=== PATIENT | male | born 1955 | race Caucasian/White ===

== ENCOUNTER 2018-04-22 12:20 | Emergency (ER) | payer BC ==
[2018-04-22 12:36] VITALS: BP 147/93; PULSE 67; TEMP 98.6; BMI 22.0
--- NOTE | 2018-04-22 12:41 | PDOC ---
History of Present Illness - General Chief Complaint: Injury Stated Complaint: LEFT MID FINGER LACERATION/AVULSION Time Seen by Provider: 04/22/18 12:37 History Source: Patient (Patient walked in complaining of accidental injury to hid left hand middle fringer with a trader blade he tried to work on) Exam Limitations: No Limitations - History of Present Illness Timing/Duration: momentarily Severity: moderate Associated Symptoms: reports: denies symptoms Past History - Travel Traveled outside of the country in the last 30 days: No Close contact w/someone who was outside of country & ill: No - Past Medical History Allergies/Adverse Reactions: Allergies Allergy/AdvReac Type Severity Reaction Status Date / Time No Known Allergies Allergy Verified 04/22/18 12:22 Home Medications: Ambulatory Orders Cephalexin [Keflex] 500 mg PO TID #20 capsule 04/22/18 Oxycodone HCl/Acetaminophen [Percocet 5-325 mg Tablet] 1 - 2 tab PO Q6H #20 tab MDD 6 tabs 04/22/18 Quetiapine Fumarate [Seroquel -] 25 mg PO HS 04/22/18 Sulfamethoxazole/Trimethoprim [Bactrim Ds -] 1 tab PO BID #14 tablet 04/22/18 Vilazodone Hydrochloride [Viibryd] 10 mg PO DAILY 04/22/18 Asthma: Yes COPD: No Psychiatric Problems: Yes (DEPRESSION) - Surgical History Appendectomy: Yes - Immunization History Tetanus Status: Less than 5 years Td Vaccination: Yes Immunization Up to Date: Yes - Suicide/Smoking/Psychosocial Hx Have you felt down, depressed or hopeless?: No Have you had or do you have any thoughts to hurt yourself?: No Have you had or do you have any thoughts to hurt others?: No Smoking Status: No Smoking History: Never smoked Have you smoked in the past 12 months: No Number of Cigarettes Smoked Daily: 0 Hx Alcohol Use: Yes (RARE) Drug/Substance Use Hx: No Substance Use Type: None Review of Systems - Review of Systems Able to Perform ROS?: Yes Is the patient limited Cam[place]onian proficient: Yes Constitutional: Yes: See HPI *Physical Exam - Vital Signs Last Vital Signs Temp Pulse Resp BP Pulse Ox 98.6 F 67 16 147/93 99 04/22/18 12:22 04/22/18 12:22 04/22/18 12:22 04/22/18 12:22 04/22/18 12:22 Moderate Sedation - Procedure Monitoring Vital Signs: Procedure Monitoring Vital Signs Temperature 98.6 F 04/22/18 12:22 Pulse Rate 67 04/22/18 12:22 Respiratory Rate 16 04/22/18 12:22 Blood Pressure 147/93 04/22/18 12:22 O2 Sat by Pulse Oximetry (%) 99 04/22/18 12:22 *DC/Admit/Observation/Transfer Diagnosis at time of Disposition: Finger amputation, traumatic Qualifiers: Encounter type: initial encounter Qualified Code(s): S68.119A - Complete traumatic metacarpophalangeal amputation of unspecified finger, initial encounter - Discharge Dispostion Disposition: HOME Condition at time of disposition: Improved Decision to Admit order: No - Prescriptions Prescriptions: Cephalexin [Keflex] 500 mg PO TID #20 capsule Oxycodone HCl/Acetaminophen [Percocet 5-325 mg Tablet] 1 - 2 tab PO Q6H #20 tab MDD 6 tabs Sulfamethoxazole/Trimethoprim [Bactrim Ds -] 1 tab PO BID #14 tablet - Referrals Referrals: Michael Mercado MD [Staff Physician] - - Patient Instructions Printed Discharge Instructions: How to Use a Sling - Post Discharge Activity
[2018-04-22] MEDS ORDERED: CEPHALEXIN MONOHYDRATE 500 MG CAPSULE (UD) PO ONE (14:24)
[2018-04-22] MEDS ORDERED: CEPHALEXIN MONOHYDRATE 500 MG CAPSULE (UD) ONE (14:46)
--- NOTE | 2018-04-23 09:11 | OP ---
DATE OF OPERATION: 04/22/2018 PREOPERATIVE DIAGNOSIS: Trauma with acute wound involving left middle finger. POSTOPERATIVE DIAGNOSES: 1. Trauma to the left middle finger. 2. Partial loss of distal phalanx. 3. Trauma to nailbed. 4. Foreign body. PROCEDURE: 1. Debridement of skin and subcutaneous tissue. 2. Debridement of nailbed. 3. Complex reconstruction of the distal tip. 4. Removal of foreign body. SURGEON: Ysabel Real MD ANESTHESIA: Lidocaine 2% plain block. HISTORY: Patient is a 62-year-old, right-hand dominant male who was working, cleaning the snowblower for the weekend, and the blade accidentally caught his left middle finger on the ulnar aspect on the distal phalanx, middle finger. There was significant loss of skin, including the nailbed, lacerations of the soft tissue. DESCRIPTION OF PROCEDURE: Local anesthetic was injected to the base of the finger. Both digital nerves were blocked. At this time, the finger was cleaned with betadine solution and then draped in the standard aseptic manner. Examination revealed more than 30% to 40% of loss of distal phalanx including the nailbed. Multiple jagged pieces of nail were imbedded in the bone. This had to be removed, cleaned, washed, debrided. Reconstruction proceeded by putting the jigsaw puzzle back into place. Multiple portions were combined in repairing the nailbed as well as the pulp, covering the opening and distal phalanx bone. It was irrigated with and normal saline solution. At the end of the procedure, circulation to the distal tip was present. Patient was given oral antibiotics. COUNSELING: Discussion had been made with patient regarding loss of bone including the nailbed. Patient's main interest is to preserve maximum length of his finger. 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 At this stage, the length has been maintained. It will be as long as before. Until healing occurs, no other procedure will be required for maximum function. Patient was sent home with oral antibiotics and pain medications. He will be followed up in the office. Elevation of the hand. Keep the dressing clean and dry. YSABEL REAL M.D. [id number]
== END 2018-04-22 17:39 | disposition home or self-care (01) ==
LOC: FER 12:20
DX: S68.113A Complete traumatic metacarpophalangeal amputation of left middle finger, initial encounter (principal); X58.XXXA Exposure to other specified factors, initial encounter; Y93.89 Activity, other specified; Y92.89 Other specified places as the place of occurrence of the external cause; J45.909 Unspecified asthma, uncomplicated; F32.9 Major depressive disorder, single episode, unspecified
CPT/HCPCS: 73140-TC-LT-FY; 99282-25

== ENCOUNTER 2018-10-08 16:10 | Emergency (ER) | payer BC | END 2018-10-08 16:54 | disposition home or self-care (01) | LOC: FER 16:10 ==